=== PATIENT | male | born 1935 | race African-American/Black ===

== ENCOUNTER 2017-11-06 18:25 | Inpatient (IN) | payer BC, OTHER ==
[~2017-11-06] VITALS: Ht 170.2 cm; Wt 65.3 kg
--- NOTE | ~2017-11-06 | S ---
[facility] [place] [address] SURGICAL PATH RPT PROCEDURE Name: JADIEL RUIZ Room #: 356-P DIS IN M.R.#: [id number] Admission: 11/06/17 Date of : 37 Discharge: 11/10/17 Report #: [id number] Path Case #: [id number] PATHOLOGY REPORT COLLECTION DATE: 11/08/2017 RECEIVED DATE: 11/08/2017 SUBMITTING PHYS: Dr. Toan Mccarthy OTHER PHYS: Dr. Carl Sanabria SPECIMEN(S) RECEIVED: A.Rectal polyp bx x2 * * * * * * * * * * * * FINAL DIAGNOSIS: Polyp x2, rectal polyp biopsy, endoscopic biopsy: - Fragments showing hyperplastic polyp along with lymphoid aggregates. - Negative for dysplasia. (IUV:mml; 11/11/2017) PATHOLOGIST: Mai Wilkins M.D. REPORT ELECTRONICALLY SIGNED BY: Mai Wilkins M.D. DATE/TIME: 11/11/2017 15:15 * * * * * * * * * * * * GROSS PATHOLOGY: The specimen is received in formalin, labeled "Jadeil Ruiz and rectal polyp biopsy 2", are several cuevas soft tissues the aggregate measure 0.5 x 0.4 x 0.1 cm, entirely submitted in A1. (SWS; 11/08/2017) CLINICAL HISTORY: Rectal bleed, diverticulosis, polyps INITIAL CPT CODE(S): A; 14072 Professional services performed by [facility] at [facility] [address], [place] [address] Technical services performed by [facility] at [address] [place] [address], [facility] [address], [place] [address]. [facility] [address] [place] [address] SURGICAL PATH RPT PROCEDURE Name: JADIEL RUIZ Room #: 356-P DIS IN M.R.#: [id number] Admission: 11/06/17 Date of : 37 Discharge: 11/10/17 Report #: [id number] Path Case #: [id number] [address] PHONE: [phone] DIRECTOR: Orlando Angel M.D. * * * END OF REPORT * * *
--- NOTE | ~2017-11-06 | HC ---
[facility] [place] [address] CONSULTATION Name: JADIEL RUIZ Room #: 356-P ADM IN M.R.#: [id number] Admission: 11/06/17 Attend Phys: Carl Sanabria DO Discharge: Date of : 37 Report #: [id number] THIS REPORT FOR: //name// CC: Carl Sanabria DO Giovanni Simons MD NO PCP DATE OF SERVICE: 11/07/2017 He is a patient of Dr. Carl Sanabria and Dr. Simons. CHIEF COMPLAINT: This is a very pleasant 81-year-old male whom I am asked to evaluate for painless hematochezia. This is the patient's third episode of painless hematochezia. His first was 6-7 years ago and the etiology was never discovered. His second episode was in 04/2017 and he went to [facility]. They did not do any interventional type of procedure on him. They did have labs apparently. He says he did have a colonoscopy at that time that did not reveal any abnormalities, but I also know that he has diverticulosis because we saw it on his CT scan with contrast that was done yesterday. There was no obvious sign of bleeding on that CT scan; I looked at it with Dr. Streeter this morning, so we did not catch an actual active bleed during that scan. He has a history of iron deficiency anemia and he has been taking iron regularly because of that. He denies any hematemesis. His stools are somewhat dark with the iron. He has had bright red blood and dark red blood per rectum that is painless. PAST MEDICAL HISTORY: Significant for similar episodes of painless bright red blood per rectum as described above. PAST SURGICAL HISTORY: None. ALLERGIES: No known drug allergies. MEDICATIONS: Include only p.r.n. Tylenol Sinus. SOCIAL HISTORY: He does not smoke. He does not drink alcohol. He had a blood transfusion with the first bleeding diathesis 6-7 years ago. FAMILY HISTORY: Negative for colon polyps, colon cancer, Crohn disease and ulcerative colitis. PHYSICAL EXAMINATION: VITAL SIGNS: Show a blood pressure of 106/64, temperature 98.2, pulse 98, respirations are 18, and he is 100% saturated on room air. HEENT: He appears normocephalic, atraumatic and anicteric. [address] [address] CONSULTATION Name: JADIEL RUIZ Room #: 356-P [facility] IN M.R.#: [id number] Admission: 11/06/17 Attend Phys: Carl Sanabria DO Discharge: Date of : 37 Report #: [id number] HEART: Rate and rhythm are regular with a normal S1 and S2. LUNGS: Clear bilaterally. ABDOMEN: Soft. Bowel sounds are present in all 4 quadrants. There is no palpable organomegaly or mass. There is no tenderness, rebound or guarding. EXTREMITIES: Warm and dry. No peripheral cyanosis, clubbing or edema. NEUROLOGIC: He appears grossly intact without any lateralizing signs. IMPRESSION: 1. Painless bright red blood per rectum in a patient with his third episode of painless hematochezia in the last 6-7 years, likely diverticular in origin. The patient has many diverticula in the descending and sigmoid colon. 2. Iron deficiency anemia. He is on iron supplements. Last colonoscopy was in 04/2017. We will try to obtain those records. My recommendations at this point are to monitor his H and H q.6 hours. We will obtain a GI bleeding scan in Nuclear Medicine stat. I did review the CT of yesterday with Interventional Radiology. Labs show that his hemoglobin has dropped from 11.7 on admission, down to 9.6 with hydration, and he has had several stools through the night, 4-5 the nurses tell me. BUN is 13, creatinine 0.9. RECOMMENDATIONS: To proceed with Nuclear Medicine GI bleeding scan stat. We will monitor his H and H q.6 hours. He can have clear liquids and coffee with cream and sugar. We will monitor his H and H closely and his vital signs. If the GI bleeding scan is positive, we will ask Interventional Radiology to see him for possible mesenteric coil. Thank you very much once again for allowing me to participate in his care Dr. Sanabria and Dr. Simons. <ELECTRONICALLY SIGNED> By: Kandi Zimmerman DO 11/07/17 1426 1023 1254 Kandi Zimmerman DO /nt
--- NOTE | ~2017-11-06 | P ---
[facility] [place] [address] PROCEDURE REPORT Name: JADIEL RUIZ Room #: 356-P ADM IN M.R.#: [id number] Admission: 11/06/17 Attend Phys: Carl Sanabria DO Discharge: Date of : 37 Report #: [id number] THIS REPORT FOR: //name// CC: Carl Judge DO NO PCP DATE OF SERVICE: 11/08/2017 PROCEDURE PERFORMED: Flexible sigmoidoscopy with biopsies. HISTORY OF PRESENT ILLNESS: The patient is an 81-year-old male with a GI bleed, suspected from a diverticular etiology. He has had previous diverticular bleeds in the past. Hemoglobin has dropped from admit of 11.7 to 8.9. The patient underwent a nuclear medicine bleeding scan. Initial images were negative; however, delayed images were possibly positive in the distal sigmoid or the rectum. I reviewed this with the radiologist, although this may just be artifact. Plan is for flexible sigmoidoscopy. DESCRIPTION OF PROCEDURE: The risks and benefits of the procedure were explained to the patient, those risks including but not limited to bleeding, perforation and the risk of sedation. He understood these risks and gave informed consent. Sedation was given using propofol per anesthesia. Next, a digital rectal exam was initially performed, which was normal. Next using a standard Fujinon colonoscope, the scope was placed in the patient's anus and advanced under direct vision up into the transverse colon. There was no active bleeding noted. There was no blood throughout the exam other than old blood within multiple diverticula. Diverticulosis was noted throughout the transverse, descending and sigmoid colon. Multiple washings and aspirations were performed. Again, I saw no active bleeding site. No colitis was noted. In the rectum, there were two 3-4 mm sessile polyps, both were removed with cold forceps. On retroflexion, small nonbleeding internal hemorrhoids were noted. The scope was then withdrawn and the procedure terminated. The patient tolerated the procedure well. IMPRESSION: 1. Diverticulosis with old blood within the diverticula. No active bleeding. 2. Two small rectal polyps. 3. Nonbleeding internal hemorrhoids. RECOMMENDATIONS: 1. Await biopsy results. 2. No active bleeding at this time. We will advance diet and continue to monitor. If the patient has recurrent bleeding in the future, may consider an arteriogram. [address] [address] PROCEDURE REPORT Name: JADIEL RUIZ Room #: 356-P [facility] IN M.R.#: [id number] Admission: 11/06/17 Attend Phys: Carl Sanabria DO Discharge: Date of : 37 Report #: [id number] Thank you for allowing me to participate in his care. By: 1143 1341 Toan Mccarthy MD /nt
[~2017-11-06 18:25] MED LIST: KEFLEX500 MG PO; MIRALAX17 GM PO
[2017-11-06 18:54] VITALS: BP 109/71
[2017-11-06 19:30] LABS: ABSOLUTE NEUTROPHILS 6.9 thou/uL (1.4-8.2); BASOPHILS 0.3 % (0.0-2.0); EOSINOPHILS 0.2 % (0.0-3.0); HEMATOCRIT 35.8 % (42.0-52.0); HEMOGLOBIN 11.7 gm/dL (14.0-18.0); MCH 28.5 pg (26.0-34.0); MCHC 32.7 g/dL (28.0-37.0); MCV 87.2 fL (80.0-100.0); MONOCYTES 7.1 % (1.0-8.0); PLATELET COUNT 205 thou/uL (150-400); POLYS 77.4 % (36.0-66.0); RDW 16.2 % (10.5-14.5); WBC 8.9 thou/uL (4.0-11.0)
[2017-11-06 19:37] LABS: CALCIUM 8.8 mg/dL (8.5-10.1); CREATININE 1.1 mg/dL (0.7-1.3); POTASSIUM 3.3 mmol/L (3.5-5.1)
[2017-11-06 21:10] VITALS: BP 106/65
[2017-11-06 21:25] VITALS: BP 121/76
[2017-11-06 21:30] VITALS: BP 108/70
[2017-11-07 02:39] VITALS: BP 121/77
[2017-11-07 07:09] LABS: HEMATOCRIT 28.5 % (42.0-52.0); MCH 29.4 pg (26.0-34.0); MCHC 33.6 g/dL (28.0-37.0); MCV 87.5 fL (80.0-100.0); RBC 3.25 mil/uL (4.50-6.00); RDW 16.3 % (10.5-14.5); WBC 6.7 thou/uL (4.0-11.0)
[2017-11-07 07:10] VITALS: BP 106/64
[2017-11-07 07:12] LABS: HEMOGLOBIN 9.6 gm/dL (14.0-18.0)
[2017-11-07 07:25] LABS: CALCIUM 8.1 mg/dL (8.5-10.1); CREATININE 0.9 mg/dL (0.7-1.3); POTASSIUM 4.1 mmol/L (3.5-5.1)
[2017-11-07 13:45] VITALS: BP 115/70
[2017-11-07 14:28] LABS: HEMATOCRIT 28.6 % (42.0-52.0); HEMOGLOBIN 9.6 gm/dL (14.0-18.0)
[2017-11-07 16:36] VITALS: BP 127/75
[2017-11-07 18:29] LABS: HEMATOCRIT 28.8 % (42.0-52.0); HEMOGLOBIN 9.6 gm/dL (14.0-18.0)
[2017-11-07 19:35] VITALS: BP 110/68
[2017-11-08 03:10] VITALS: BP 109/66
[2017-11-08 04:31] LABS: ABSOLUTE NEUTROPHILS 4.5 thou/uL (1.4-8.2); BASOPHILS 0.3 % (0.0-2.0); EOSINOPHILS 0.7 % (0.0-3.0); HEMATOCRIT 27.2 % (42.0-52.0); HEMOGLOBIN 8.9 gm/dL (14.0-18.0); LYMPHOCYTES 23.3 % (24.0-44.0); MCHC 32.8 g/dL (28.0-37.0); MCV 88.4 fL (80.0-100.0); MONOCYTES 10.5 % (1.0-8.0); PLATELET COUNT 179 thou/uL (150-400); POLYS 65.2 % (36.0-66.0); RBC 3.07 mil/uL (4.50-6.00); RDW 16.8 % (10.5-14.5); WBC 6.9 thou/uL (4.0-11.0)
[2017-11-08 04:39] LABS: CALCIUM 8.2 mg/dL (8.5-10.1); POTASSIUM 3.8 mmol/L (3.5-5.1)
[2017-11-08 07:40] VITALS: BP 118/71
[2017-11-08 08:31] LABS: % SATURATION 29 % (20-39); IRON 59 ug/dL (65-175); TIBC 202 ug/dL (250-450)
[2017-11-08 08:58] LABS: FERRITIN 165 ng/mL (26-388)
[2017-11-08 15:47] VITALS: BP 118/70
[2017-11-08 20:05] VITALS: BP 100/59
[2017-11-09 04:25] LABS: ABSOLUTE NEUTROPHILS 3.8 thou/uL (1.4-8.2); BASOPHILS 0.2 % (0.0-2.0); EOSINOPHILS 1.3 % (0.0-3.0); HEMATOCRIT 24.4 % (42.0-52.0); LYMPHOCYTES 27.8 % (24.0-44.0); MCH 29.1 pg (26.0-34.0); MCHC 32.8 g/dL (28.0-37.0); MCV 88.6 fL (80.0-100.0); MONOCYTES 7.9 % (1.0-8.0); PLATELET COUNT 162 thou/uL (150-400); POLYS 62.8 % (36.0-66.0); RBC 2.76 mil/uL (4.50-6.00); RDW 16.4 % (10.5-14.5); WBC 6.1 thou/uL (4.0-11.0)
[2017-11-09 04:35] VITALS: BP 121/69
[2017-11-09 04:52] LABS: CALCIUM 8.3 mg/dL (8.5-10.1); CREATININE 0.9 mg/dL (0.7-1.3); POTASSIUM 3.6 mmol/L (3.5-5.1)
[2017-11-09 08:17] VITALS: BP 142/78
[2017-11-09] MEDS ORDERED: FLOMAX0.4 MG PO (08:24)
[2017-11-09 11:43] VITALS: BP 139/78
[2017-11-09 16:11] VITALS: BP 126/82
[2017-11-09 19:30] VITALS: BP 120/70
[2017-11-10 04:34] VITALS: BP 107/59
[2017-11-10 07:50] VITALS: BP 112/64
[2017-11-10 10:00] LABS: ABSOLUTE NEUTROPHILS 5.5 thou/uL (1.4-8.2); BASOPHILS 0.2 % (0.0-2.0); EOSINOPHILS 0.9 % (0.0-3.0); HEMATOCRIT 28.6 % (42.0-52.0); HEMOGLOBIN 9.7 gm/dL (14.0-18.0); LYMPHOCYTES 22.2 % (24.0-44.0); MCH 30.4 pg (26.0-34.0); MCHC 33.8 g/dL (28.0-37.0); MCV 90.1 fL (80.0-100.0); PLATELET COUNT 220 thou/uL (150-400); POLYS 67.7 % (36.0-66.0); RBC 3.18 mil/uL (4.50-6.00); WBC 8.1 thou/uL (4.0-11.0)
[2017-11-10 11:30] VITALS: BP 112/64
[2017-11-10 11:42] VITALS: BP 135/79
[2017-11-10 13:41] VITALS: BP 112/64
== END 2017-11-10 13:45 | disposition home or self-care (01) | DRG 379 ==
LOC: ER 18:25 → 3W 20:22 → EROBS 20:22 → 3W 21:21
PROVIDERS: Family Medicine; Internal Medicine Gastroenterology; Nurse Practitioner Family; Physician Assistant; Registered Nurse
PROC: 0DBP8ZX Excision of Rectum, Via Natural or Artificial Opening Endoscopic, Diagnostic (ICD-10-PCS; principal; 2017-11-08)
DX: K92.2 Gastrointestinal hemorrhage, unspecified (principal); I95.1 Orthostatic hypotension; D50.9 Iron deficiency anemia, unspecified; N40.0 Benign prostatic hyperplasia without lower urinary tract symptoms; R33.9 Retention of urine, unspecified; Z28.21 Immunization not carried out because of patient refusal
CPT/HCPCS: 10779; 62110; 62900; 70005

== ENCOUNTER 2017-11-15 18:35 | Inpatient (IN) | payer BC, OTHER ==
[~2017-11-15] VITALS: Ht 172.7 cm; Wt 67.6 kg
--- NOTE | ~2017-11-15 | EKG ---
[address] [place] [address] ELECTROCARDIOGRAM REPORT Name: JADIEL RUIZ Room #: 458-P ADM IN M.R.#: [id number] Admission: 11/15/17 Attend Phys: Vladimir Nixon MD Discharge: Date of : 37 Report #: [id number] THIS REPORT FOR: //name// [facility] ED Test Date: 2017-11-15 Test Time: 18:58:22 Pat Name: JADIEL RUIZ Department: Room: 458 P Gender: M Digital Campaign Specialist: MZOOK : 1935 Requested By: Vladimir Nixon Order Number: [id number] MD: Demetrio Swanson Measurements Intervals Meally Rate: 117 P: 55 LA: 124 QRS: 27 QRSD: 80 T: 61 QT: 306 QTc: 427 Interpretive Statements Sinus tachycardia Ventricular premature complex Abnormal R-wave progression, early transition Nonspecific T abnrm, anterolateral leads No previous ECG available for comparison Electronically Signed On 11-16-2017 12:17:54 CDT by Demetrio Swanson [email or web address] <ELECTRONICALLY SIGNED> By: Demetrio Swanson MD, FAC 11/16/17 1217 1858 57 Demetrio Swanson MD, [facility] /EPI
[~2017-11-15 18:35] MED LIST changes: +FLOMAX0.4 MG PO
[2017-11-15 18:52] VITALS: BP 104/69
[2017-11-15 19:36] LABS: URINE BILIRUBIN NEGATIVE (Negative); URINE BLOOD NEGATIVE (Negative); URINE CLARITY CLEAR; URINE COLOR YELLOW; URINE GLUCOSE-RANDOM* NEGATIVE (Negative); URINE KETONES NEGATIVE (Negative); URINE LEUKOCYTES NEGATIVE (Negative); URINE NITRITE NEGATIVE (Negative); URINE PROTEIN (DIPSTICK) NEGATIVE (Negative); URINE UROBILINOGEN 0.2 E.U./dl (0.2-1.0)
[2017-11-15 19:36] LABS: ABSOLUTE NEUTROPHILS 5.7 thou/uL (1.4-8.2); BASOPHILS 0.3 % (0.0-2.0); EOSINOPHILS 0.2 % (0.0-3.0); HEMATOCRIT 27.6 % (42.0-52.0); LYMPHOCYTES 22.4 % (24.0-44.0); MCH 29.4 pg (26.0-34.0); MCHC 32.5 g/dL (28.0-37.0); MCV 90.3 fL (80.0-100.0); MONOCYTES 8.9 % (1.0-8.0); PLATELET COUNT 356 thou/uL (150-400); POLYS 68.2 % (36.0-66.0); RBC 3.05 mil/uL (4.50-6.00); RDW 17.7 % (10.5-14.5); WBC 8.3 thou/uL (4.0-11.0)
[2017-11-15 19:43] LABS: POTASSIUM 4.1 mmol/L (3.5-5.1)
[2017-11-15 19:49] LABS: ALBUMIN 3.3 g/dL (3.4-5.0); TOTAL BILIRUBIN 0.2 mg/dL (<0.1-1.0); TOTAL PROTEIN 7.3 g/dL (6.4-8.2)
[2017-11-15 19:58] LABS: PROTIME 10.4 Seconds (9.3-11.4)
[2017-11-15 21:25] VITALS: BP 109/59
[2017-11-15 21:34] VITALS: BP 99/64
[2017-11-16 03:29] VITALS: BP 117/67
[2017-11-16 04:47] LABS: HEMATOCRIT 23.9 % (42.0-52.0); HEMOGLOBIN 7.8 gm/dL (14.0-18.0)
[2017-11-16 07:54] VITALS: BP 99/60
[2017-11-16 11:20] LABS: HEMATOCRIT 24.5 % (42.0-52.0)
[2017-11-16 15:33] VITALS: BP 98/57
[2017-11-16 17:55] LABS: HEMATOCRIT 23.3 % (42.0-52.0); HEMOGLOBIN 7.7 gm/dL (14.0-18.0)
[2017-11-16 19:25] VITALS: BP 107/56
[2017-11-17 05:27] LABS: HEMATOCRIT 22.1 % (42.0-52.0); HEMOGLOBIN 7.2 gm/dL (14.0-18.0); MCH 29.7 pg (26.0-34.0); MCHC 32.7 g/dL (28.0-37.0); MCV 90.6 fL (80.0-100.0); RBC 2.44 mil/uL (4.50-6.00); WBC 6.5 thou/uL (4.0-11.0)
[2017-11-17 05:35] LABS: CALCIUM 8.2 mg/dL (8.5-10.1); CREATININE 0.9 mg/dL (0.7-1.3); POTASSIUM 4.1 mmol/L (3.5-5.1)
[2017-11-17 07:40] VITALS: BP 103/64
[2017-11-17] MEDS ORDERED: PROSCAR 5MG TABL5 MG PO (09:09)
[2017-11-17 16:37] VITALS: BP 126/58
[2017-11-17 19:20] VITALS: BP 141/65
[2017-11-17 21:46] LABS: HEMATOCRIT 20.9 % (42.0-52.0); HEMOGLOBIN 6.8 gm/dL (14.0-18.0)
[2017-11-18 00:11] VITALS: BP 108/69; BP 120/71
[2017-11-18 03:37] VITALS: BP 105/69
[2017-11-18 05:41] LABS: HEMOGLOBIN 7.9 gm/dL (14.0-18.0); MCH 29.6 pg (26.0-34.0); MCV 89.8 fL (80.0-100.0); RBC 2.67 mil/uL (4.50-6.00); WBC 6.5 thou/uL (4.0-11.0)
[2017-11-18 05:53] LABS: CALCIUM 8.3 mg/dL (8.5-10.1); POTASSIUM 3.9 mmol/L (3.5-5.1)
[2017-11-18 08:00] VITALS: BP 120/75
[2017-11-18 16:00] VITALS: BP 136/70
[2017-11-18 19:40] VITALS: BP 112/64
[2017-11-19 05:28] LABS: HEMATOCRIT 24.4 % (42.0-52.0); MCH 29.7 pg (26.0-34.0); MCHC 32.9 g/dL (28.0-37.0); MCV 90.2 fL (80.0-100.0); RBC 2.7 mil/uL (4.50-6.00); RDW 17.8 % (10.5-14.5); WBC 6.3 thou/uL (4.0-11.0)
[2017-11-19 05:42] LABS: CALCIUM 8.6 mg/dL (8.5-10.1); CREATININE 0.9 mg/dL (0.7-1.3); POTASSIUM 3.8 mmol/L (3.5-5.1)
[2017-11-19 07:43] VITALS: BP 111/67
[2017-11-19 15:23] VITALS: BP 133/77
[2017-11-19] MEDS ORDERED: PROTONIX40 M1 PO (15:34)
[2017-11-19 15:39] VITALS: BP 133/77
== END 2017-11-19 16:05 | disposition home or self-care (01) | DRG 378 ==
LOC: ER 18:35 → 4W 19:49 → EROBS 19:49 → 4W 21:43 → ENTRNSPT 11-19 15:44 → EDTRNSPTSTS 11-19 15:47 → 4W 11-19 16:05
PROVIDERS: Hospitalist; Nurse Practitioner Acute Care; Nurse Practitioner Family
PROC: 30233N1 Transfusion of Nonautologous Red Blood Cells into Peripheral Vein, Percutaneous Approach (ICD-10-PCS; principal; 2017-11-18)
DX: K57.91 Diverticulosis of intestine, part unspecified, without perforation or abscess with bleeding (principal); D62 Acute posthemorrhagic anemia; N40.0 Benign prostatic hyperplasia without lower urinary tract symptoms; Z79.899 Other long term (current) drug therapy
CPT/HCPCS: 10045